=== PATIENT | male | born 1995 | race Caucasian/White ===

== ENCOUNTER 2017-03-27 18:25 | Emergency (ER) | payer OTHER ==
[~2017-03-27] VITALS: Ht 190.5 cm; Wt 148.3 kg
[2017-03-27 18:50] VITALS: BP 115/73
== END 2017-03-27 19:48 | disposition home or self-care (01) ==
LOC: ED 18:25
DX: S39.012A Strain of muscle, fascia and tendon of lower back, initial encounter (principal); E11.9 Type 2 diabetes mellitus without complications; V49.9XXA Car occupant (driver) (passenger) injured in unspecified traffic accident, initial encounter; Y93.89 Activity, other specified; Y99.8 Other external cause status; Y92.89 Other specified places as the place of occurrence of the external cause

== ENCOUNTER 2017-08-17 22:33 | Emergency (ER) | payer OTHER ==
[2017-08-18 01:00] VITALS: BP 128/74
== END 2017-08-18 01:00 | disposition home or self-care (01) ==
LOC: ED 22:33
DX: R30.0 Dysuria (principal); E11.9 Type 2 diabetes mellitus without complications; Z79.4 Long term (current) use of insulin

== ENCOUNTER 2017-11-28 23:32 | Emergency (ER) | payer OTHER ==
[~2017-11-28] VITALS: Ht 188 cm; Wt 152.4 kg
[2017-11-28 23:41] VITALS: Ht 188 cm; Wt 152.4 kg
[2017-11-29 02:55] VITALS: BP 118/62
== END 2017-11-29 02:55 | disposition home or self-care (01) ==
LOC: ED 23:32
DX: N48.1 Balanitis (principal); E11.65 Type 2 diabetes mellitus with hyperglycemia
CPT/HCPCS: 82962; J1815; J7030

== ENCOUNTER 2018-02-12 03:47 | Emergency (ER) | payer OTHER ==
[~2018-02-12] VITALS: Ht 190.5 cm; Wt 152.9 kg
[2018-02-12 04:06] VITALS: Ht 190.5 cm; Wt 152.9 kg
[2018-02-12 05:54] VITALS: BP 118/70
== END 2018-02-12 05:54 | disposition home or self-care (01) ==
LOC: ED 03:47
DX: S93.401A Sprain of unspecified ligament of right ankle, initial encounter (principal); E11.9 Type 2 diabetes mellitus without complications; W22.8XXA Striking against or struck by other objects, initial encounter; Y93.89 Activity, other specified; Y99.8 Other external cause status; Y92.89 Other specified places as the place of occurrence of the external cause
CPT/HCPCS: Q0092

== ENCOUNTER 2018-03-02 23:56 | Emergency (ER) | payer OTHER ==
[~2018-03-02] VITALS: Ht 188 cm; Wt 157.4 kg
[2018-03-03 05:01] VITALS: BP 114/66
== END 2018-03-03 05:01 | disposition home or self-care (01) ==
LOC: ED 23:56
DX: M25.571 Pain in right ankle and joints of right foot (principal); F41.9 Anxiety disorder, unspecified; E11.65 Type 2 diabetes mellitus with hyperglycemia
CPT/HCPCS: 82962; Q0092

== ENCOUNTER 2019-06-10 20:50 | Emergency (ER) | payer OTHER ==
[~2019-06-10] VITALS: Ht 190.5 cm; Wt 158.8 kg
[2019-06-10 20:55] VITALS: Ht 190.5 cm; Wt 158.8 kg
[2019-06-10 21:23] VITALS: BP 140/81
== END 2019-06-10 21:23 | disposition home or self-care (01) ==
LOC: ED 20:50
DX: E11.9 Type 2 diabetes mellitus without complications (principal); Z76.0 Encounter for issue of repeat prescription
CPT/HCPCS: 82962

== ENCOUNTER 2019-12-31 14:53 | Emergency (ER) | payer OTHER ==
[~2019-12-31] VITALS: Ht 190.5 cm; Wt 179.2 kg
[2019-12-31 15:11] VITALS: BP 156/91; Ht 190.5 cm; Wt 179.2 kg
== END 2019-12-31 15:43 | disposition home or self-care (01) ==
LOC: ED 14:53
DX: Z76.0 Encounter for issue of repeat prescription (principal); E11.9 Type 2 diabetes mellitus without complications